=== PATIENT | male | born 1950 | race Caucasian/White ===

== ENCOUNTER → 2018-03-17 | Outpatient (CLI) | payer MEDICARE | LOC: M RAD 16:52 | DX: I65.03 Occlusion and stenosis of bilateral vertebral arteries (principal) | CPT/HCPCS: 93880 ==

== ENCOUNTER → 2018-12-22 | Outpatient (CLI) | payer MEDICARE ==
--- NOTE | 2018-12-22 17:51 | REP ---
Prostate sonography: History: Elevated PSA Sonographic findings: Trans rectal prostate sonography demonstrates unremarkable seminal vesicles. Prostate gland is heterogeneously enlarged with calcifications and cystic changes noted. Glandular dimensions are measured at 5.8 x 4.9 x 5.5 cm with a calculated glandular volume of 82.5 ml. There are multiple left-sided nodules identified ranging in size from 0.7-0.9 cm. Transrectal sonographic guidance provided to Dr. Wallace who performed trans rectal ultrasound guided needle biopsy procedure . Electronically Signed by Ender Eng MD 12/22/2018 05:42 P
== END ==
LOC: M SMT PRO 10:07
PROVIDERS: ATTEND Urology
DX: R97.20 Elevated prostate specific antigen [PSA] (principal)
CPT/HCPCS: 76872; 76942; G0416

== ENCOUNTER → 2019-01-22 | Outpatient (CLI) | payer MEDICARE | LOC: M RAD 10:04 | PROVIDERS: ATTEND Family Medicine | DX: Z53.9 Procedure and treatment not carried out, unspecified reason (principal) ==

== ENCOUNTER → 2019-02-08 | Outpatient (CLI) | payer MEDICARE ==
[~2019-02-08] MED LIST: PROHANCE 279.3MG/ML 15ML VIAL (A9576) As Ordered ONE; PROHANCE 279.3MG/ML 5ML VIAL (A9576) As Ordered ONE
--- NOTE | 2019-02-08 10:33 | REP ---
MR ORBITS WITHOUT AND WITH CONTRAST: HISTORY: Left orbit pain. CONTRAST: ProHance 16 mL. The globes, optic nerves and rectus muscles are normal in appearance. There is no orbital lesion . There is no abnormal enhancement. The sella turcica is empty. The cavernous sinuses, optic chiasm and hypothalamus are normal in appearance. Scattered punctate areas of increased signal intensity on T2 weighted images are present in the periventricular and subcortical white matter. This represents small vessel ischemic disease. The ventricular system is normal in appearance. There is no extracerebral collection. Minimal mucosal thickening is present in the right maxillary sinus. Impression: There is no orbital lesion. Electronically Signed by Jonas Dalton MD 02/08/2019 10:36 A
== END ==
LOC: M RAD 08:36
PROVIDERS: ATTEND Family Medicine
DX: H57.12 Ocular pain, left eye (principal)
CPT/HCPCS: 70543; A9576

== ENCOUNTER → 2019-08-07 | Outpatient (CLI) | payer MEDICARE ==
--- NOTE | 2019-08-09 07:30 | REP ---
MRI LEFT SHOULDER: TECHNIQUE: Axial T2 fat sat, gradient echo, sagittal oblique T2 fat sat, coronal oblique T1, T2 fat sat. Supraspinatus tendon demonstrates moderate ill-defined high signal on T2 weighted images compatible with a moderate degree of tendinopathy with a focal partial full thickness tear at the anterior leading edge of the tendon. There is also mild to moderate tendinopathy of the subscapularis. There are moderate hypertrophic degenerative changes of the acromioclavicular joint with mild fluid in the joint. The acromion is downward sloping and is type 2. The biceps tendon is within the bicipital groove. There is ill-defined high signal on T2 weighted imaged in the proximal biceps tendon, compatible with moderate tendonitis or partial tearing. There is adjacent fraying and partial tearing of the biceps labral complex and labrum. There is a partial tear of the posterior labrum. There is no paralabral cyst. There is no Hill Sach's deformity. The deltoid muscle demonstrates no abnormal signal. There is moderate chondromalacia at the glenohumeral joint. Subchondral cystic changes are seen in the inferior glenoid. There is no occult fracture. There is mild fluid in the subacromial, subdeltoid bursae. IMPRESSION: Moderate tendinopathy supraspinatus and subscapularis with a partial full thickness tear at the anterior ledging edge of the supraspinatus tendon. Moderate hypertrophic degenerative changes of the acromioclavicular joint with downward sloping of a type 2 acromion. Tendonitis versus partial tear proximal biceps tendon with adjacent fraying and partial tearing of the biceps labral complex and labrum. There is a partial tear of the posterior labrum. Moderate chondromalacia at the glenohumeral joint with subchondral cystic change in the inferior glenoid. Mild fluid in the subacromial subdeltoid bursae. Electronically Signed by Samy Alexander MD 08/10/2019 09:45 A
== END ==
LOC: M RAD 11:49
PROVIDERS: ATTEND Family Medicine
DX: S46.012A Strain of muscle(s) and tendon(s) of the rotator cuff of left shoulder, initial encounter (principal); X58.XXXA Exposure to other specified factors, initial encounter; Y92.89 Other specified places as the place of occurrence of the external cause; Y93.9 Activity, unspecified; Y99.9 Unspecified external cause status

== ENCOUNTER → 2019-08-24 | Outpatient (POV) | payer MEDICARE ==
[~2019-08-24] VITALS: Ht 177.8 cm; Wt 81.8 kg
[2019-08-24 09:20] VITALS: BP 162/92
--- NOTE | 2019-08-24 15:09 | IRCOV ---
[facility] IR Consult Office Visit IR Consult Office Visit DATE: Aug 24, 2019 REASON FOR CONSULTATION/CHIEF COMPLAINT: Neck pain. Head spinning with neck movements. 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 He describes symptoms of dizziness when he turns his neck to the side or backwards. He is status post posterior cervical fusion. He has known disc disease and facet disease in the neck. He has tried pain injections which haven't helped. He describes symptoms and signs of occipital neuralgia for which he has tried pain injections without help. He's been under the care of neurosurgery in [place] Dr. Amanda who thought further surgery will not help his symptoms. He is worried about the blood vessels going to his brain and the possibility of a stroke. He's had ultrasound of the carotids in 2018. No syncope. No TIAs. No weakness. Does not pass out when overusing the right arm. However feels scared to move his neck because this makes him dizzy and he thinks he might have a stroke. No chest pain. No shortness of breath. Otherwise fit and healthy. Maintains blood pressure in the 120s. No issues with cholesterol or diabetes. ALLERGIES: Please see below. HOME MEDICATIONS: Please see below. PAST MEDICAL HISTORY: Psoriasis Basal cell carcinoma left cheek Meniere's disease Chronic low back pain PAST SURGICAL HISTORY: Appendectomy Hernia repair Cervical fusion 1986 Rhinoplasty Vestibular decompression of the ears Colonoscopy 2014 EGD 2018 biopsy prostate 2019 FAMILY HISTORY: Fit and healthy. SOCIAL HISTORY: Nonsmoker no alcohol or drugs. REVIEW OF SYSTEMS: Otherwise negative. PHYSICAL EXAMINATION: VITAL SIGNS: Please see below. GENERAL APPEARANCE: Appears well. Comfortable at rest. HEENT: No scleral icterus. Surgical scar the back of the neck. No midline cervical spine tenderness. RESPIRATORY: Symmetric breath sounds. CARDIOVASCULAR: Normal rate. ABDOMEN: Soft nontender. EXTREMITIES: Left lower extremity: No edema. Warm to touch. Normal skin. Femoral pulse 2+ popliteal pulse 2+ DP/PT 2+ Right lower extremity: no edema. Warm to touch. Normal skin. Femoral pulse 2+ popliteal pulse 2+ DP/PT 2+. NEUROLOGICAL: Alert and oriented. Motor lower extremities 5 out of 5. Sensation intact. Motor upper extremities 5 out of 5. No neurologic symptoms with prolonged flexion and abduction of left shoulder. PSYCHIATRIC: Appropriate to circumstance. Imaging: I personally reviewed the MRI of the C-spine from October 2016. There is posterior fusion hardware in the C-spine. There is C2-3, C4-5 C5- 6 posterior disc osteophytes complex with mild canal stenosis at C2-3. I also reviewed the neck ultrasound from March 2018. Bilateral carotid arteries are patent. There are 2 vertebral arteries, the left vertebral artery is smaller. Bilateral vertebral arteries are patent. 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 Patient would like diagnostic angiogram to examine the arteries as he worries that he is pinching off an artery when he moves his neck and fears this might result in a stroke. Given his extensive history and surgeries, I think further diagnostic or interventional workup is better performed at [place] where, if there is external compression, this would be amenable to surgical decompression. If there is external compression, endovascular stenting is not going to help. I have referred him back to Dr. Amanda in [place] and for Dr. Amanda to refer to vascular surgery in [place] if applicable. If patient has any issues getting back in touch with his [place] surgeon, I'd be happy to refer him elsewhere. I spent 30 minutes in consultation with the patient. Thank you for this referral. VS, I&O, 24H, Fishbone Vital Signs/I&O Vital Signs Date Time Temp Pulse Resp B/P (MAP) Pulse Ox O2 Delivery O2 Flow Rate FiO2 08/24/19 09:20 98.3 62 16 162/92 ([phone] TONY NIEVES MD Aug 24, 2019 15:09
== END ==
LOC: M IRPOV 08:43
PROVIDERS: ATTEND Radiology Diagnostic Radiology
DX: M54.2 Cervicalgia (principal); R42 Dizziness and giddiness; M50.90 Cervical disc disorder, unspecified, unspecified cervical region; L40.9 Psoriasis, unspecified; H81.09 Meniere's disease, unspecified ear; M54.5 Low back pain; G89.29 Other chronic pain; Z85.828 Personal history of other malignant neoplasm of skin; Z98.1 Arthrodesis status

== ENCOUNTER → 2020-06-21 | Outpatient (CLI) | payer MEDICARE | LOC: M LABSMTC 11:50 | PROVIDERS: ATTEND Physical Medicine & Rehabilitation | DX: Z11.59 Encounter for screening for other viral diseases (principal); Z20.828 Contact with and (suspected) exposure to other viral communicable diseases ==

== ENCOUNTER → 2020-08-06 | Outpatient (CLI) | payer MEDICARE | LOC: M LABSMTC 08:49 | PROVIDERS: ATTEND Physical Medicine & Rehabilitation | DX: Z20.828 Contact with and (suspected) exposure to other viral communicable diseases (principal) ==

== ENCOUNTER → 2020-10-14 | Outpatient (CLI) | payer MEDICARE | LOC: M LABSMTC 08:30 | PROVIDERS: ATTEND Physician Assistant | DX: Z01.812 Encounter for preprocedural laboratory examination (principal); Z20.828 Contact with and (suspected) exposure to other viral communicable diseases ==

== ENCOUNTER → 2020-10-28 | Outpatient (CLI) | payer MEDICARE | LOC: M LABSMTC 08:11 | PROVIDERS: ATTEND Orthopaedic Surgery | DX: Z11.59 Encounter for screening for other viral diseases (principal); Z20.828 Contact with and (suspected) exposure to other viral communicable diseases ==

== ENCOUNTER → 2020-12-11 | Outpatient (REF) | payer MEDICARE ==
[2020-12-11 16:29] LABS: BASO % 0.6 % (0.0-1.0); EOS # 0.2 10^3/uL (0.0-0.5); EOS % 2.1 % (0.0-3.0); LYMPH # 2.9 10^3/uL (1.5-5.0); LYMPH % 39.9 % (24.0-44.0); MEAN CORPUSCULAR HEMOGLOBIN 30.3 pg (27.0-33.0); MEAN CORPUSCULAR HGB CONC 33.3 g/dl (32.0-36.5); MEAN CORPUSCULAR VOLUME 90.9 fl (80.0-96.0); MONO # 0.5 10^3/uL (0.0-0.8); MONO % 7.3 % (0.0-5.0); NEUTROPHILS # 3.6 10^3/uL (1.5-8.5); PLATELET COUNT, AUTOMATED 298 10^3/uL (150-450); RED BLOOD COUNT 4.95 10^6/uL (4.30-6.10); WHITE BLOOD COUNT 7.2 10^3/uL (4.0-10.0)
[2020-12-11 16:57] LABS: ALBUMIN 3.9 GM/DL (3.2-5.2); ALT/SGPT 51 U/L (12-78); BILIRUBIN,TOTAL 0.6 MG/DL (0.2-1.0); BLOOD UREA NITROGEN 17 MG/DL (7-18); CALCIUM LEVEL 9.5 MG/DL (8.8-10.2); CARBON DIOXIDE LEVEL 27 MEQ/L (21-32); CHLORIDE LEVEL 106 MEQ/L (98-107); CHOLESTEROL LEVEL 264 MG/DL (<200); CREATININE FOR GFR 0.81 MG/DL (0.70-1.30); GLOMERULAR FILTRATION RATE > 60.0 (>49); GLUCOSE, FASTING 89 MG/DL (70-100); HDL CHOLESTEROL 60 MG/DL (>40); LDL CHOLESTEROL 176 MG/DL (<100); MAGNESIUM LEVEL 2.1 MG/DL (1.8-2.4); NON-HDL-C 204 MG/DL; POTASSIUM SERUM 4.6 MEQ/L (3.5-5.1); PROSTATIC SPECIFIC AG MONITOR 8.34 NG/ML (< 4.00); SODIUM LEVEL 140 MEQ/L (136-145); TRIGLYCERIDES LEVEL 138 MG/DL (<150)
[2020-12-11 17:51] LABS: HEMOGLOBIN A1c 5.3 %
== END ==
LOC: M SFHCCLAY 10:44
PROVIDERS: ATTEND Family Medicine
DX: Z01.83 Encounter for blood typing (principal); M75.41 Impingement syndrome of right shoulder; E78.5 Hyperlipidemia, unspecified; R97.20 Elevated prostate specific antigen [PSA]; R73.01 Impaired fasting glucose; K21.9 Gastro-esophageal reflux disease without esophagitis; M54.2 Cervicalgia
CPT/HCPCS: 20610; 80053; 80061; 83036; 83735; 84153; 85025; 86140; 86900; 86901; G0463; J1030

== ENCOUNTER → 2021-04-03 | Outpatient (REF) | payer MEDICARE | LOC: M SFHCCLAY 10:39 | PROVIDERS: ATTEND Family Medicine | DX: R97.20 Elevated prostate specific antigen [PSA] (principal) ==

== ENCOUNTER → 2021-04-03 | Outpatient (CLI) | payer MEDICARE ==
--- NOTE | 2021-04-03 11:17 | REP ---
INDICATION: M25.551 RIGHT HIP PAIN. COMPARISON: None TECHNIQUE: AP and frog-lateral views FINDINGS: See impression IMPRESSION: The hip joint space is symmetric and relatively well maintained. There is no acute fracture or destructive osseous lesion. <Electronically signed by Amos Del Castillo > 04/03/21 0531
== END ==
LOC: M CLY 10:52
PROVIDERS: ATTEND Family Medicine
DX: M25.551 Pain in right hip (principal); R97.20 Elevated prostate specific antigen [PSA]
CPT/HCPCS: 73502; 84153; G0463

== ENCOUNTER → 2021-04-12 | Outpatient (REF) | payer MEDICARE | LOC: M SFHCCLAY 11:39 | PROVIDERS: ATTEND Family Medicine | DX: K21.9 Gastro-esophageal reflux disease without esophagitis (principal); R14.0 Abdominal distension (gaseous) ==

== ENCOUNTER → 2021-06-13 | Outpatient (REF) | payer MEDICARE ==
[2021-06-13 15:49] LABS: PLATELET COUNT, AUTOMATED 309 10^3/uL (150-450)
[2021-06-13 16:02] LABS: COLLAGEN EPINEPHRINE 110 SECONDS (74-162)
[2021-06-13 16:03] LABS: INR 0.94; PROTHROMBIN TIME 12.8 SECONDS (12.5-14.3)
[2021-06-13 16:04] LABS: PARTIAL THROMBOPLASTIN TIME 40.8 SECONDS (24.2-38.5)
== END ==
LOC: M LABDRAWC 15:31
PROVIDERS: ATTEND Physical Medicine & Rehabilitation
DX: M50.21 Other cervical disc displacement, high cervical region (principal)

== ENCOUNTER → 2021-06-15 | Outpatient (REF) | payer MEDICARE | LOC: M LABDRAWC 15:27 | PROVIDERS: ATTEND Physical Medicine & Rehabilitation | DX: Z01.812 Encounter for preprocedural laboratory examination (principal) ==

== ENCOUNTER → 2021-10-16 | Outpatient (REF) | payer MEDICARE ==
[2021-10-16 11:56] LABS: HEMOGLOBIN A1c 5.4 %
[2021-10-16 12:14] LABS: ALBUMIN 3.7 GM/DL (3.2-5.2); ALT/SGPT 32 U/L (12-78); BILIRUBIN,TOTAL 0.9 MG/DL (0.2-1.0); BLOOD UREA NITROGEN 17 MG/DL (7-18); CALCIUM LEVEL 9.5 MG/DL (8.8-10.2); CARBON DIOXIDE LEVEL 28 MEQ/L (21-32); CHLORIDE LEVEL 108 MEQ/L (98-107); CHOLESTEROL LEVEL 270 MG/DL (<200); CHOLESTEROL RISK RATIO 4.426 (<5); GLOMERULAR FILTRATION RATE > 60.0 (>42); GLUCOSE, FASTING 102 MG/DL (70-100); HDL CHOLESTEROL 61 MG/DL (>40); LDL CHOLESTEROL 193 MG/DL (<100); MAGNESIUM LEVEL 2.3 MG/DL (1.8-2.4); NON-HDL-C 209 MG/DL; POTASSIUM SERUM 4.5 MEQ/L (3.5-5.1); PROSTATIC SPECIFIC AG MONITOR 8.23 NG/ML (< 4.00); SODIUM LEVEL 142 MEQ/L (136-145); TOTAL PROTEIN 6.9 GM/DL (6.4-8.2); TRIGLYCERIDES LEVEL 78 MG/DL (<150)
[2021-10-25 17:08] LABS: CYCLIC CITRULLINATED PEPTIDE 5 units (0-19); HLA-B27 Negative (.)
== END ==
LOC: M SFHCCLAY 08:14
PROVIDERS: ATTEND Family Medicine
DX: M54.50 Low back pain, unspecified (principal); M54.2 Cervicalgia; R97.20 Elevated prostate specific antigen [PSA]; R73.01 Impaired fasting glucose; E78.2 Mixed hyperlipidemia; K21.9 Gastro-esophageal reflux disease without esophagitis
CPT/HCPCS: 20610; 80053; 80061; 81374; 83036; 83735; 84153; 86200; G0463; J1030

== ENCOUNTER → 2021-12-11 | Outpatient (REF) | payer MEDICARE ==
[2021-12-11 11:47] LABS: BASO % 0.3 % (0.0-1.0); EOS # 0.2 10^3/uL (0.0-0.5); EOS % 2.3 % (0.0-3.0); HEMATOCRIT 44.5 % (42.0-52.0); HEMOGLOBIN 14.7 g/dl (13.5-17.5); LYMPH # 2.6 10^3/uL (1.5-5.0); LYMPH % 40.3 % (24.0-44.0); MEAN CORPUSCULAR HEMOGLOBIN 30.2 pg (27.0-33.0); MEAN CORPUSCULAR VOLUME 91.4 fl (80.0-96.0); MONO # 0.4 10^3/uL (0.0-0.8); MONO % 5.8 % (2.0-8.0); NEUTROPHILS # 3.3 10^3/uL (1.5-8.5); NEUTROPHILS % 51.1 % (36.0-66.0); PLATELET COUNT, AUTOMATED 288 10^3/uL (150-450); RED BLOOD COUNT 4.87 10^6/uL (4.30-6.10); WHITE BLOOD COUNT 6.5 10^3/uL (4.0-10.0)
[2021-12-11 12:25] LABS: ALBUMIN 3.8 GM/DL (3.2-5.2); ALT/SGPT 24 U/L (12-78); BILIRUBIN,TOTAL 0.9 MG/DL (0.2-1.0); BLOOD UREA NITROGEN 17 MG/DL (7-18); CALCIUM LEVEL 9.1 MG/DL (8.8-10.2); CARBON DIOXIDE LEVEL 26 MEQ/L (21-32); CHLORIDE LEVEL 107 MEQ/L (98-107); CHOLESTEROL LEVEL 227 MG/DL (<200); CHOLESTEROL RISK RATIO 4.203 (<5); CREATININE FOR GFR 0.72 MG/DL (0.70-1.30); GLOMERULAR FILTRATION RATE > 60.0 (>42); GLUCOSE, FASTING 108 MG/DL (70-100); HDL CHOLESTEROL 54 MG/DL (>40); LDL CHOLESTEROL 159 MG/DL (<100); NON-HDL-C 173 MG/DL; POTASSIUM SERUM 4.3 MEQ/L (3.5-5.1); PROSTATIC SPECIFIC AG MONITOR 9.26 NG/ML (< 4.00); SODIUM LEVEL 139 MEQ/L (136-145); TOTAL PROTEIN 6.8 GM/DL (6.4-8.2); TRIGLYCERIDES LEVEL 70 MG/DL (<150)
== END ==
LOC: M SFHCCLAY 07:35
PROVIDERS: ATTEND Family Medicine
DX: E78.2 Mixed hyperlipidemia (principal); R97.20 Elevated prostate specific antigen [PSA]; K21.9 Gastro-esophageal reflux disease without esophagitis

== ENCOUNTER → 2022-01-24 | Outpatient (REF) | payer MEDICARE ==
[2022-01-24 16:14] LABS: BASO % 0.6 % (0.0-1.0); EOS # 0.1 10^3/uL (0.0-0.5); EOS % 2.1 % (0.0-3.0); HEMATOCRIT 45.6 % (42.0-52.0); LYMPH # 2.6 10^3/uL (1.5-5.0); LYMPH % 38.9 % (24.0-44.0); MEAN CORPUSCULAR HEMOGLOBIN 30.1 pg (27.0-33.0); MEAN CORPUSCULAR HGB CONC 32.9 g/dl (32.0-36.5); MEAN CORPUSCULAR VOLUME 91.6 fl (80.0-96.0); MONO # 0.4 10^3/uL (0.0-0.8); MONO % 6.6 % (2.0-8.0); NEUTROPHILS # 3.4 10^3/uL (1.5-8.5); NEUTROPHILS % 51.5 % (36.0-66.0); PLATELET COUNT, AUTOMATED 286 10^3/uL (150-450); RED BLOOD COUNT 4.98 10^6/uL (4.30-6.10); WHITE BLOOD COUNT 6.6 10^3/uL (4.0-10.0)
[2022-01-24 16:53] LABS: ALBUMIN 3.7 GM/DL (3.2-5.2); ALT/SGPT 36 U/L (12-78); AMYLASE 64 U/L (25-115); BLOOD UREA NITROGEN 18 MG/DL (7-18); CALCIUM LEVEL 9.1 MG/DL (8.8-10.2); CARBON DIOXIDE LEVEL 28 MEQ/L (21-32); CHLORIDE LEVEL 109 MEQ/L (98-107); CREATININE FOR GFR 0.71 MG/DL (0.70-1.30); GLOMERULAR FILTRATION RATE > 60.0 (>42); GLUCOSE, FASTING 97 MG/DL (70-100); LIPASE 94 U/L (73-393); POTASSIUM SERUM 4.7 MEQ/L (3.5-5.1); SODIUM LEVEL 139 MEQ/L (136-145); TOTAL PROTEIN 6.8 GM/DL (6.4-8.2)
[2022-01-26 15:06] LABS: H PYLORI SERUM QUANT IGA <9.0 units (0.0-8.9); H PYLORI SERUM QUANT IGM <9.0 units (0.0-8.9); H PYLORI SERUM QUANT IgG ABY 0.98 (0.00-0.79)
== END ==
LOC: M SFHCCLAY 09:40
PROVIDERS: ATTEND Family Medicine
DX: R10.13 Epigastric pain (principal)

== ENCOUNTER → 2022-08-23 | Outpatient (REF) | payer MEDICARE | LOC: M SFHCCLAY 08:16 | PROVIDERS: ATTEND Family Medicine | DX: E55.9 Vitamin D deficiency, unspecified (principal); Z79.899 Other long term (current) drug therapy ==

== ENCOUNTER → 2022-11-07 | Outpatient (REF) | payer MEDICARE | LOC: M SFHCCLAY 14:13 | PROVIDERS: ATTEND Family Medicine | DX: R10.13 Epigastric pain (principal); K21.9 Gastro-esophageal reflux disease without esophagitis; E55.9 Vitamin D deficiency, unspecified ==

== ENCOUNTER → 2023-02-11 | Outpatient (CLI) | payer MEDICARE | LOC: M LABSMTC 08:18 | PROVIDERS: ATTEND Anesthesiology | DX: Z11.52 Encounter for screening for COVID-19 (principal) ==

== ENCOUNTER 2023-02-14 11:45 | Day surgery (SDC) | payer MEDICARE ==
[~2023-02-14] VITALS: Ht 177.8 cm; Wt 79.8 kg
[~2023-02-14 11:45] MED LIST changes: +NS 1,000 ML IV ONE; -PROHANCE 279.3MG/ML 15ML VIAL (A9576) As Ordered ONE; -PROHANCE 279.3MG/ML 5ML VIAL (A9576) As Ordered ONE
[2023-02-14] MEDS ORDERED: LIDOCAINE 2% 100MG/5ML SDV (FOR ANES.) As Ordered ONE (12:39)
[2023-02-14] MEDS ORDERED: propofoL 500 MG/50 ML VIAL As Ordered ONE (12:39)
[2023-02-14] MEDS ORDERED: fentaNYL 100 MCG/2 ML INJECTION As Ordered ONE (12:39)
[2023-02-14 13:23] VITALS: BP 143/69
== END 2023-02-14 13:22 | disposition home or self-care (01) ==
LOC: M OPP 11:45
PROVIDERS: ATTEND Internal Medicine Gastroenterology
DX: K44.9 Diaphragmatic hernia without obstruction or gangrene (principal); B96.81 Helicobacter pylori [H. pylori] as the cause of diseases classified elsewhere; K30 Functional dyspepsia; F32.9 Major depressive disorder, single episode, unspecified; F41.9 Anxiety disorder, unspecified; Z80.52 Family history of malignant neoplasm of bladder
CPT/HCPCS: 43239; 88305; J3010

== ENCOUNTER → 2023-02-28 | Outpatient (CLI) | payer MEDICARE | LOC: M CLY 15:29 | PROVIDERS: ATTEND Family Medicine | DX: Z01.818 Encounter for other preprocedural examination (principal); M54.2 Cervicalgia ==

== ENCOUNTER → 2023-10-20 | Outpatient (REF) | payer MEDICARE ==
[2023-10-20 12:56] LABS: HEMATOCRIT 45.8 % (42.0-52.0); HEMOGLOBIN 15.3 g/dl (13.5-17.5); MEAN CORPUSCULAR HEMOGLOBIN 30.9 pg (27.0-33.0); MEAN CORPUSCULAR HGB CONC 33.4 g/dl (32.0-36.5); MEAN CORPUSCULAR VOLUME 92.5 fl (80.0-96.0); PLATELET COUNT, AUTOMATED 308 10^3/uL (150-450); RED BLOOD COUNT 4.95 10^6/uL (4.30-6.10); WHITE BLOOD COUNT 5.8 10^3/uL (4.0-10.0)
[2023-10-20 13:13] LABS: INR 1.01
[2023-10-20 13:14] LABS: PARTIAL THROMBOPLASTIN TIME 38.7 SECONDS (24.8-34.2)
[2023-10-20 13:26] LABS: C REACTIVE PROTEIN QUANTITATIV < 0.40 MG/DL (<1.0); HEMOGLOBIN A1c 5.2 % (4.0-6.0)
[2023-10-20 13:29] LABS: ERYTHROCYTE SEDIMENTATION RATE 15 mm/hr (0-20)
[2023-10-20 15:17] LABS: ALBUMIN 3.6 G/DL (3.2-5.2); ALKALINE PHOSPHATASE 65 U/L (46-116); ALT/SGPT 27 U/L (7.0-40); AST/SGOT 15 U/L (<34); BILIRUBIN,TOTAL 1.1 MG/DL (0.3-1.2); BLOOD UREA NITROGEN 16 MG/DL (9-23); CALCIUM LEVEL 8.9 MG/DL (8.3-10.6); CARBON DIOXIDE LEVEL 26 MMOL/L (20-31); CHLORIDE LEVEL 105 MMOL/L (98-107); CHOLESTEROL LEVEL 246 MG/DL (<200); CREATININE FOR GFR 0.76 MG/DL (0.70-1.30); GLOMERULAR FILTRATION RATE > 60.0 (>42); GLUCOSE, FASTING 97 MG/DL (74-106); MAGNESIUM LEVEL 1.9 MG/DL (1.8-2.4); POTASSIUM SERUM 4.8 MMOL/L (3.5-5.1); PROSTATIC SPECIFIC AG MONITOR 6.77 NG/ML (< 4.00); SODIUM LEVEL 138 MMOL/L (136-145); TOTAL PROTEIN 6.6 G/DL (5.7-8.2); TRIGLYCERIDES LEVEL 70 MG/DL (<150)
[2023-10-20 16:39] LABS: CHOLESTEROL RISK RATIO 4.16 (<5)
[2023-10-21 20:07] LABS: VITAMIN D 1,25 DIHYDROXY 46.1 pg/mL (24.8-81.5)
== END ==
LOC: M SFHCCLAY 07:35
PROVIDERS: ATTEND Family Medicine
DX: R97.20 Elevated prostate specific antigen [PSA] (principal); E78.2 Mixed hyperlipidemia; R73.01 Impaired fasting glucose; E55.9 Vitamin D deficiency, unspecified; M54.2 Cervicalgia; R76.8 Other specified abnormal immunological findings in serum; K21.9 Gastro-esophageal reflux disease without esophagitis; Z86.39 Personal history of other endocrine, nutritional and metabolic disease; R79.1 Abnormal coagulation profile

== ENCOUNTER → 2024-04-19 | Outpatient (REF) | payer MEDICARE ==
[2024-04-19 12:09] LABS: INR 1.02; PROTHROMBIN TIME 13.1 SECONDS (12.5-14.5)
[2024-04-19 12:33] LABS: ALBUMIN 3.6 G/DL (3.2-5.2); ALKALINE PHOSPHATASE 62 U/L (46-116); ALT/SGPT 34 U/L (7.0-40); AST/SGOT 18 U/L (<34); BILIRUBIN,TOTAL 1.3 MG/DL (0.3-1.2); BLOOD UREA NITROGEN 18 MG/DL (9-23); CALCIUM LEVEL 9.1 MG/DL (8.3-10.6); CARBON DIOXIDE LEVEL 26 MMOL/L (20-31); CHLORIDE LEVEL 108 MMOL/L (98-107); CREATININE FOR GFR 0.71 MG/DL (0.70-1.30); GLOMERULAR FILTRATION RATE > 60.0 (>42); GLUCOSE, FASTING 112 MG/DL (74-106); POTASSIUM SERUM 4.6 MMOL/L (3.5-5.1); SODIUM LEVEL 138 MMOL/L (136-145); TOTAL PROTEIN 6.6 G/DL (5.7-8.2)
[2024-04-20 15:09] LABS: VITAMIN D 1,25 DIHYDROXY 59.6 pg/mL (24.8-81.5)
== END ==
LOC: M SFHCCLAY 07:32
PROVIDERS: ATTEND Family Medicine
DX: R73.01 Impaired fasting glucose (principal); E78.2 Mixed hyperlipidemia; E55.9 Vitamin D deficiency, unspecified; K21.9 Gastro-esophageal reflux disease without esophagitis; M54.2 Cervicalgia; R76.8 Other specified abnormal immunological findings in serum; Z86.39 Personal history of other endocrine, nutritional and metabolic disease

== ENCOUNTER → 2024-07-30 | Outpatient (CLI) | payer MEDICARE | LOC: M SLEEP HO 11:27 | PROVIDERS: ATTEND Family Medicine | DX: G47.30 Sleep apnea, unspecified (principal) ==

== ENCOUNTER → 2024-10-05 | Outpatient (CLI) | payer MEDICARE | LOC: M SLEEP 20:00 | PROVIDERS: ATTEND Physician Assistant | DX: G47.33 Obstructive sleep apnea (adult) (pediatric) (principal) ==

== ENCOUNTER → 2024-10-28 | Outpatient (REF) | payer MEDICARE ==
[2024-10-28 17:29] LABS: LIPASE 35 U/L (12-53)
[2024-10-28 17:32] LABS: ALBUMIN 3.3 G/DL (3.2-5.2); ALKALINE PHOSPHATASE 79 U/L (40-129); ALT/SGPT 29 U/L (7.0-40); AMYLASE 84 U/L (30-118); AST/SGOT 13 U/L (<34); BILIRUBIN,TOTAL 0.7 MG/DL (0.3-1.2); BLOOD UREA NITROGEN 15 MG/DL (9-23); CALCIUM LEVEL 9.7 MG/DL (8.3-10.6); CARBON DIOXIDE LEVEL 28 MMOL/L (20-31); CHLORIDE LEVEL 105 MMOL/L (98-107); CREATININE FOR GFR 0.73 MG/DL (0.70-1.30); GLOMERULAR FILTRATION RATE > 60.0 (>42); GLUCOSE, FASTING 94 MG/DL (74-106); POTASSIUM SERUM 4.9 MMOL/L (3.5-5.1); SODIUM LEVEL 141 MMOL/L (136-145); TOTAL PROTEIN 7.2 G/DL (5.7-8.2)
== END ==
LOC: M SFHCCLAY 10:13
PROVIDERS: ATTEND Family Medicine
DX: R19.7 Diarrhea, unspecified (principal)

== ENCOUNTER → 2024-11-21 | Outpatient (CLI) | payer MEDICARE | LOC: M SLEEP 20:00 | PROVIDERS: ATTEND Physician Assistant | DX: G47.33 Obstructive sleep apnea (adult) (pediatric) (principal) ==

== ENCOUNTER → 2024-12-10 | Outpatient (REF) | payer MEDICARE ==
[2024-12-10 13:37] LABS: CORTISOL AM 27.4 UG/DL (4.3-22.4)
[2024-12-10 13:38] LABS: C REACTIVE PROTEIN QUANTITATIV < 0.50 MG/DL (<1.0)
== END ==
LOC: M SFHCCLAY 07:33
PROVIDERS: ATTEND Family Medicine
DX: E55.9 Vitamin D deficiency, unspecified (principal); F41.9 Anxiety disorder, unspecified; G47.9 Sleep disorder, unspecified; M54.2 Cervicalgia; R76.8 Other specified abnormal immunological findings in serum

== ENCOUNTER 2025-01-17 11:06 | Day surgery (SDC) | payer MEDICARE ==
[~2025-01-17] VITALS: Ht 177.8 cm; Wt 81.6 kg
[~2025-01-17 11:06] MED LIST changes: +CO-E200C PO; +DIAZ2TAB PO; +DULO1CAP4 PO; +GLYCOPYRROLATE INJ 0.2 MG/ML 2 ML VIAL As Ordered ONE; +LIDOCAINE 2% 100MG/5ML SDV (FOR ANES.) As Ordered ONE; +MAGN400C2 PO; +NATTOKINASE PO; -NS 1,000 ML IV ONE; +OMEG10002 PO; +VITA100065 PO; +VITA500045 PO; +VITATAB73 PO; +ZINC50TA14 PO; +propofoL 200 MG/20 ML VIAL As Ordered ONE
[2025-01-17 13:14] VITALS: TEMP 98.1
[2025-01-17 13:31] VITALS: BP 143/63; O2SAT 97
== END 2025-01-17 13:41 | disposition home or self-care (01) ==
LOC: M OPP 11:06
PROVIDERS: ATTEND Internal Medicine Gastroenterology
DX: K63.5 Polyp of colon (principal); K29.70 Gastritis, unspecified, without bleeding; B96.81 Helicobacter pylori [H. pylori] as the cause of diseases classified elsewhere; K57.30 Diverticulosis of large intestine without perforation or abscess without bleeding; K64.8 Other hemorrhoids; Z86.0101 Personal history of adenomatous and serrated colon polyps; K44.9 Diaphragmatic hernia without obstruction or gangrene; R12 Heartburn; Z79.899 Other long term (current) drug therapy
CPT/HCPCS: 43239; 45385; 88305; J1596

== ENCOUNTER → 2025-02-09 | Outpatient (CLI) | payer MEDICARE ==
[~2025-02-09] MED LIST changes: -GLYCOPYRROLATE INJ 0.2 MG/ML 2 ML VIAL As Ordered ONE; -LIDOCAINE 2% 100MG/5ML SDV (FOR ANES.) As Ordered ONE; -propofoL 200 MG/20 ML VIAL As Ordered ONE
== END ==
LOC: M PLAIMG 11:47
PROVIDERS: ATTEND Otolaryngology
DX: J32.0 Chronic maxillary sinusitis (principal)

== ENCOUNTER → 2025-04-06 | Outpatient (CLI) | payer MEDICARE | LOC: M PLAIMG 10:40 | PROVIDERS: ATTEND Nurse Practitioner Family | DX: N40.0 Benign prostatic hyperplasia without lower urinary tract symptoms (principal) ==

== ENCOUNTER → 2025-10-04 | Outpatient (REF) | payer MEDICARE ==
[~2025-10-04] MED LIST changes: +ERGO125013 PO; -VITA500045 PO
[2025-10-04 18:15] LABS: BASO # 0.1 10^3/uL (0.0-0.2); BASO % 0.6 % (0.0-1.0); EOS # 0.1 10^3/uL (0.0-0.5); EOS % 1.1 % (0.0-3.0); LYMPH # 2.9 10^3/uL (1.5-5.0); LYMPH % 32.4 % (24.0-44.0); MONO # 0.5 10^3/uL (0.0-0.8); MONO % 6.1 % (2.0-8.0); NEUTROPHILS # 5.3 10^3/uL (1.5-8.5); NEUTROPHILS % 59.6 % (36.0-66.0); PLATELET COUNT, AUTOMATED 301 10^3/uL (150-450)
[2025-10-04 18:20] LABS: C REACTIVE PROTEIN QUANTITATIV < 0.50 MG/DL (<1.0)
[2025-10-04 18:23] LABS: ALT/SGPT 51 U/L (7.0-40); AST/SGOT 24 U/L (<34); CALCIUM LEVEL 9.2 MG/DL (8.3-10.6); CARBON DIOXIDE LEVEL 27 MMOL/L (20-31); CHLORIDE LEVEL 104 MMOL/L (98-107); CHOLESTEROL LEVEL 252 MG/DL (<200); CHOLESTEROL RISK RATIO 3.90 (<5); CREATININE FOR GFR 0.78 MG/DL (0.70-1.30); GLOMERULAR FILTRATION RATE > 90.0 (>42); LDL CHOLESTEROL 168.1 MG/DL (<100); MAGNESIUM LEVEL 1.9 MG/DL (1.8-2.4); NON-HDL-C 187.5 MG/DL; POTASSIUM SERUM 4.6 MMOL/L (3.5-5.1); SODIUM LEVEL 140 MMOL/L (136-145); TRIGLYCERIDES LEVEL 97 MG/DL (<150)
[2025-10-04 18:35] LABS: ESTIMATED AVERAGE GLUCOSE 117.0 MG/DL (60-110)
== END ==
LOC: M SFHCCLAY 14:41
PROVIDERS: ATTEND Family Medicine
DX: R10.13 Epigastric pain (principal); R73.01 Impaired fasting glucose; E78.2 Mixed hyperlipidemia; K21.9 Gastro-esophageal reflux disease without esophagitis; E55.9 Vitamin D deficiency, unspecified; R76.89 Other specified abnormal immunological findings in serum